=== PATIENT | male | born 1965 | race Caucasian/White ===

== ENCOUNTER → 2020-10-15 08:12 | Outpatient (BNVA) | payer MEDICARE, MEDICAID, SELFPAY | PROVIDERS: PCP Internal Medicine; Visit Provider Physician Assistant ==

== ENCOUNTER 2025-02-15 11:32 | Inpatient (IN) | payer MEDICARE, MEDICAID, SELFPAY ==
[2025-02-15] VITALS (12 sets, daily range): BP systolic 128–161; BP diastolic 70–89; PULSE 70–95; RESP 14–32; TEMP 36.6–37.1; O2SAT 80–97; BMI 54.0
--- NOTE | ~2025-02-15 | CT_ITS ---
EXAMINATION: CT CHEST ANGIOGRAPHY WITH IV CONTRAST INDICATION: Profound hypoxia, productive cough COMPARISON: Correlation is made with a chest x-ray performed earlier in the day. TECHNIQUE: Helical CT scan of the chest was performed following administration of intravenous contrast (65 mL Omnipaque 350). The contrast bolus was timed to optimally opacify the pulmonary arteries. Thin sections were obtained through the pulmonary arteries. Coronal and sagittal reformatted images were generated. 3D/MIP reconstructed images are also obtained and reviewed. This CT exam was performed with one or more of the following dose reduction techniques: automated exposure control, adjustment of the mA and/or kV according to patient size, use of iterative reconstruction technique. DLP: 592 mGy-cm CHEST: THYROID: The thyroid gland is unremarkable. PULMONARY ARTERIES: There is poor opacification of the pulmonary arteries. Nearly all of the contrast is in the left subclavian vein. There is dilatation of the main pulmonary artery which has a diameter greater than that of the adjacent ascending thoracic aorta, consistent with pulmonary arterial LUNGS: There is respiratory motion artifact. There is subsegmental atelectasis in the lingula. The lungs are otherwise grossly clear. MEDIASTINUM: There is no mediastinal lymphadenopathy. JULI: There is no hilar lymphadenopathy. CARDIOVASCULATURE: The heart is normal in size. There is no pericardial effusion. The thoracic aorta is normal in caliber. DEGREE OF CORONARY CALCIFICATION: moderate PLEURA: There is no pleural effusion. No pneumothorax. MAIN AIRWAYS: The mainstem bronchi and proximal branches are patent. AXILLA: There is no axillary lymphadenopathy. UPPER ABDOMEN: The visualized portions of the liver, spleen, and adrenals are unremarkable. BONES AND SOFT TISSUES: Unremarkable. CT/CT angio chest PE protocol IMPRESSION: Nondiagnostic examination for pulmonary emboli. Dilatation of the main pulmonary artery is compatible with pulmonary arterial hypertension. Electronically signed by: Leonard Flowers MD 02/15/2025 02:58 PM EDT
--- NOTE | ~2025-02-15 | XR_ITS ---
EXAMINATION: XR CHEST 2 VIEWS HISTORY: SOB COMPARISON: Comparison is made with the prior examination dated 03/07/2019. FINDINGS: AP and lateral views of the chest are submitted. The examination is limited by patient body habitus. The lungs are grossly clear. There is no pleural effusion, pneumothorax, or pulmonary vascular congestion. The heart is normal in size given technique. The bones are intact. XR/XR chest 2V IMPRESSION: Limited examination due to patient body habitus. The lungs are grossly clear. Electronically signed by: Leonard Flowers MD 02/15/2025 12:45 PM EDT
--- NOTE | 2025-02-15 11:38 | ED.SOB ---
HPI - SOB/Dyspnea General Chief Complaint: Dyspnea Stated Complaint: Diff Breathing Time Seen by Provider: 02/15/25 11:47 History of Present Illness ED Provider: Dr. Jang HPI Narrative: 59 y/o M patient; PMH PAM not compliant with CPAP, recent cocaine use (approx 3 days ago), marijuana use, extensive smoking history (quit approx 1 year ago due to cost of cigarettes); presents from home reporting approx 4 days of increased SOB associated with a productive cough. Patient does have known sick contact in step-daughter. He otherwise denies: fever or chills, chest pain, nausea/vomiting, abdominal pain, syncope. He states the only medications he uses are gabapentin and tylenol. Related Data Allergies Allergy/AdvReac Type Severity Reaction Status Date / Time No Known Allergies Allergy Verified 02/15/25 11:41 Review of Systems Review of Systems: Yes all other systems are reviewed and are negative [facility] Past Medical History Attestation statement: The following information was validated with the patient. Source: unable to obtain Surgical History History of skin surgery History of hip surgery Family History Family History Father Prostate CA Mother Colon cancer Sister Uterine cancer Brother DM (diabetes mellitus) Sister No problems noted. Social History Social History Alcohol intake: current Alcohol intake frequency: a few times a week Smoked in Last 30 Days: No Use of substances other than those prescribed or required for medical reasons: Yes Substance Use Type: Crack/Cocaine Advance Directives: No Advance Directives Information Provided: Yes Do you have a plan to hurt others: No Plan Physical Exam Vital Signs: Vital Signs: Last Vital Signs Temp 97.8 F 02/15/25 11:40 Pulse 88 02/15/25 12:00 Resp 24 H 02/15/25 12:00 BP 161/89 H 02/15/25 12:00 Pulse Ox 95 02/15/25 12:00 O2 Del Method Nasal Cannula 02/15/25 12:00 O2 Flow Rate 4 02/15/25 12:00 BMI result Body Mass Index 54.0 Patient is afebrile, tachypnic, and hypoxic requiring 3L NC. Const: General: cooperative Orientation/consciousness: patient oriented x3 HEENT: Head: Yes normal to inspection and Yes atraumatic Eyes: General: appearance normal, both eyes and all related structures Pupils: Equal, round and reactive pupils present EOM: EOMs intact bilaterally Neck: Neck: Yes normal visual inspection, Yes full ROM, Yes supple and No tender Chest: Chest palpation & inspection: normal inspection of the chest and normal palpation of entire chest wall Resp: Other: Diminished bilaterally, diffuse rhonchi, able to speak in 1 - 2 word sentences, + tachypnea. Effort & Inspection: Actively coughing and respiratory distress Cardio: Rate: regular rate Rhythm: regular rhythm Peripheral pulses: Peripheral pulses 2+ throughout GI: Inspection: Yes normal to inspection, No Abdominal wall edema and No distended Palpation (GI): Soft to palpation, not firm, nontender, no guarding and not rigid Auscultation: normal bowel sounds Back/Spine/Pelvis: Back: No back tenderness Neuro: General: patient oriented x3 Cranial nerves: Yes Equal, round and reactive pupils present Extrem: Other: 2+ bilateral lower extremity pitting edema Course Course Course Narrative: 02/15/25 1142 TIMBO [place]ver This is a Rapid Medical Examination (RME) performed by Wendy Bustamante PA-C in triage. Full HPI, ROS, assessment and treatment plan per primary provider in the Main ED. Hx: 59 yo M hx PAM here for eval of dyspnea, SOB, and cough productive of green/morrow sputum x2-3 days. states step daughter is ill w/ similar symptoms. denies chest pain. not on O2 at home. PE/vitals: hypoxic to 80% on RA, placed on 3L NC in triage. increased effort of breathing, talking in 1-2 word sentences. lungs with scattered expiratory wheezes, diminished breath sounds. cough noted. nonpitting edema to b/l LEs. Plan: ekg, cxr, viral swabs, labs Reevaluation(s) Reevaluation #1: Requested to see patient immediately due to high risk of life threatening deterioration in condition. Patient is afebrile, tachypnic, and hypoxic requiring 3L NC. Patient arrived hypoxic to 80% on RA - improved well with 3L NC. Will obtain EKG, CXR, and laboratory studies as detailed above. Although patient does not have a formal diagnosis of COPD, he does have a smoking history and is quite hypoxic & wheezy. I will provide a dose of Solu-Medrol and place him on the ED Bronchodilator protocol. Labs reviewed. No leukocytosis or significant anemia. VBG without acidosis. Initial troponin 25, repeat 2hr troponin ordered. COVID/Flu/RSV negative. CXr read as unremarkable by radiologist. Given profound hypoxia - will obtain CTA Chest to r/o PE. CTA notable for likely pulmonary artery HTN. No evidence of focal infiltrates. Non-diagnostic for PE due to contrast bolus timing. Plan: Admit to hospitalist Condition: Stable Medications Administered Discontinued Medications Generic Name Dose Route Start Last Admin Trade Name Freq PRN Reason Stop Dose Admin Iohexol 100 ml 02/15/25 13:58 02/15/25 13:58 Iohexol 350 Mg/Ml 100 Ml Infus..Btl IV 02/15/25 13:59 65 ml ONCE ONE Administration Methylprednisolone Sodium Succinate 125 mg 02/15/25 12:03 02/15/25 12:14 Methylprednisolone Sod Succ 125 Mg Vial IVPUSH 02/15/25 12:04 125 mg ONCE ONE Administration Medical Decision Making Lab Data 02/15/25 12:02 02/15/25 12:02 Labs: Lab Results 02/15/25 02/15/25 02/15/25 Range/Units 12:02 12:09 12:18 WBC 7.8 (4.8-10.8) X10*3/uL RBC 4.72 (4.60-5.80) X10*6/uL Hgb 14.3 (14.0-18.0) g/dl Hct 45.8 (42.0-52.0) % MCV 97.0 (80.0-98.0) fL MCH 30.3 (27.0-33.0) pg MCHC 31.2 (31.0-36.0) g/dl RDW 14.2 (11.0-16.0) % Plt Count 164 (160-400) X10*3/uL MPV 9.8 (9.4-12.4) fL Immature Gran % (Auto) 0.3 (0.0-0.4) % Neut % (Auto) 81.4 H (45-73) % Lymph % (Auto) 7.0 L (20-40) % Mchenry % (Auto) 9.3 (2-11) % Eos % (Auto) 1.7 (0-4) % Baso % (Auto) 0.3 (0-2) % Lymph # (Auto) 0.6 L (1.2-4.9) X10*3/uL Mchenry # (Auto) 0.7 (0.1-1.2) X10*3/uL Eos # (Auto) 0.1 (0.0-0.4) X10*3/uL Baso # (Auto) 0.0 (0.0-0.2) X10*3/uL Abs Immat Gran (auto) 0.02 (0.00-0.03) X10*3/uL Absolute Neuts (auto) 6.4 (2.0-8.3) x10*3/uL Absolute Nucleated RBC 0.000 (0.0-0.012) X10*3/uL Nucleated RBC % (auto) 0.0 (0.0-0.2) /100WBC VBG pH 7.35 (7.32-7.43) VBG pCO2 58 mmHg VBG pO2 94 mmHg VBG HCO3 33 H (22-26) mmol/L VBG O2 Saturation 100.0 % VBG Base Excess 5.4 mmol/L Sodium 137 (135-145) mmol/L Potassium 4.0 (3.3-5.1) mmol/L Chloride 103 (96-108) mmol/L Carbon Dioxide 31 H (22-29) mmol/L Anion Gap 7 L (12-20) BUN 13 (9-16) mg/dL Creatinine 0.65 (0.5-1.4) mg/dL Estim Creat Clear Calc 185.9 Estimated GFR > 60 Random Glucose 109 (60-115) mg/dL Lactic Acid 0.8 (0.5-2.0) mmol/L Calcium 9.0 (8.4-10.2) mg/dL Magnesium 1.7 (1.6-2.6) mg/dL Total Bilirubin 0.4 (0.0-1.0) mg/dL AST 25 (5-37) U/L ALT 19 (0-40) U/L Alkaline Phosphatase 76 (39-117) U/L Troponin I High Sens 25.1 (<3.5-35.0) ng/L B-Natriuretic Peptide 99 (<100) pg/mL Total Protein 7.2 (6.5-8.0) g/dL Albumin 3.8 (3.5-5.0) g/dL Influenza Type A (PCR) NEGATIVE (Negative) Influenza Type B (PCR) NEGATIVE (Negative) RSV RNA Qual (PCR) NEGATIVE (Negative) SARS-CoV-2 RNA (RT-PCR) NEGATIVE (Negative) Independent Interpretation I performed an independent interpretation of an: EKG Interpretation: NSR 80BPM with normal intervals, no ischemic changes Radiology Impression Discussion of test interpretation with radiology: I have reviewed the radiologist's reading. Radiologist Impression: EXAMINATION: XR CHEST 2 VIEWS HISTORY: SOB COMPARISON: Comparison is made with the prior examination dated 03/07/2019. FINDINGS: AP and lateral views of the chest are submitted. The examination is limited by patient body habitus. The lungs are grossly clear. There is no pleural effusion, pneumothorax, or pulmonary vascular congestion. The heart is normal in size given technique. The bones are intact. XR/XR chest 2V IMPRESSION: Limited examination due to patient body habitus. The lungs are grossly clear. Electronically signed by: Leonard Flowers MD 02/15/2025 12:45 PM EDT RP Report Number: [id number]: Total DLP = 592.00 mGy-cm EXAMINATION: CT CHEST ANGIOGRAPHY WITH IV CONTRAST INDICATION: Profound hypoxia, productive cough COMPARISON: Correlation is made with a chest x-ray performed earlier in the day. TECHNIQUE: Helical CT scan of the chest was performed following administration of intravenous contrast (65 mL Omnipaque 350). The contrast bolus was timed to optimally opacify the pulmonary arteries. Thin sections were obtained through the pulmonary arteries. Coronal and sagittal reformatted images were generated. 3D/MIP reconstructed images are also obtained and reviewed. This CT exam was performed with one or more of the following dose reduction techniques: automated exposure control, adjustment of the mA and/or kV according to patient size, use of iterative reconstruction technique. DLP: 592 mGy-cm CHEST: THYROID: The thyroid gland is unremarkable. PULMONARY ARTERIES: There is poor opacification of the pulmonary arteries. Nearly all of the contrast is in the left subclavian vein. There is dilatation of the main pulmonary artery which has a diameter greater than that of the adjacent ascending thoracic aorta, consistent with pulmonary arterial LUNGS: There is respiratory motion artifact. There is subsegmental atelectasis in the lingula. The lungs are otherwise grossly clear. MEDIASTINUM: There is no mediastinal lymphadenopathy. JULI: There is no hilar lymphadenopathy. CARDIOVASCULATURE: The heart is normal in size. There is no pericardial effusion. The thoracic aorta is normal in caliber. DEGREE OF CORONARY CALCIFICATION: moderate PLEURA: There is no pleural effusion. No pneumothorax. MAIN AIRWAYS: The mainstem bronchi and proximal branches are patent. AXILLA: There is no axillary lymphadenopathy. UPPER ABDOMEN: The visualized portions of the liver, spleen, and adrenals are unremarkable. BONES AND SOFT TISSUES: Unremarkable. CT/CT angio chest PE protocol IMPRESSION: Nondiagnostic examination for pulmonary emboli. Dilatation of the main pulmonary artery is compatible with pulmonary arterial hypertension. Electronically signed by: Leonard Flowers MD 02/15/2025 02:58 PM EDT Discharge Plan Discharge Clinical Impression: Viral pneumonia, COPD exacerbation, Pulmonary arterial hypertension Patient Disposition: Admitted As Inpatient Print Language: Sudanese
--- NOTE | 2025-02-15 11:40 | ECG_ITS ---
Test Reason : SOB Blood Pressure : */* mmHG Vent. Rate : 80 BPM Atrial Rate : 80 BPM P-R Int : 154 ms QRS Dur : 94 ms QT Int : 376 ms P-R-T Axes : 64 -14 62 degrees QTcB Int : 433 ms Normal sinus rhythm Normal ECG When compared with ECG of 07-Mar-2019 10:50, No significant change was found Referred By: Rosa Bustamante Electronically Signed By: SHANTELLE SARKAR
[2025-02-15 12:10] LABS: MANUAL DIFF FLAG NO
[2025-02-15 12:11] LABS: Basophils Percent Auto 0.3 % (0-2); Eosinophils Absolute Auto 0.1 X10*3/uL (0.0-0.4); Eosinophils Percent Auto 1.7 % (0-4); Hematocrit 45.8 % (42.0-52.0); Hemoglobin 14.3 g/dl (14.0-18.0); Imm Gran Abs Auto 0.02 X10*3/uL (0.00-0.03); Imm Gran Pct Auto 0.3 % (0.0-0.4); Lymphocytes Absolute Auto 0.6 X10*3/uL (1.2-4.9); Mean Corpuscular HGB Conc 31.2 g/dl (31.0-36.0); Mean Corpuscular Hemoglobin 30.3 pg (27.0-33.0); Mean Platelet Volume 9.8 fL (9.4-12.4); Monocytes Absolute Auto 0.7 X10*3/uL (0.1-1.2); Monocytes Percent Auto 9.3 % (2-11); Neutrophils Absolute Auto 6.4 x10*3/uL (2.0-8.3); Neutrophils Percent Auto 81.4 % (45-73); Platelet Count 164 X10*3/uL (160-400); Red Blood Count 4.72 X10*6/uL (4.60-5.80); Red Cell Distribution Width 14.2 % (11.0-16.0); White Blood Count 7.8 X10*3/uL (4.8-10.8)
[2025-02-15 12:14] LABS: VBG Base Excess 5.4 mmol/L; VBG HCO3 33 mmol/L (22-26); VBG pCO2 58 mmHg; VBG pH 7.35 (7.32-7.43); VBG pO2 94 mmHg
[2025-02-15 12:16] LABS: Venous Blood Gas Refer to POC result
[2025-02-15 12:34] LABS: Troponin-I High Sensitivity 25.1 ng/L (<3.5-35.0)
[2025-02-15 12:38] LABS: B Type Natriuretic Peptide 99 pg/mL (<100)
--- OUTSIDE RECORDS SUMMARY | 2025-02-15 13:05 | XMS_ITS ---
Author Organization [facility] Care Team Providers Care Mental Retardation Aide Name Role Phone Cecile Duran Unavailable Unavailable Hillary Cartwright Unavailable Unavailable Celsa Trevizo Unavailable Unavailable Allergies and adverse reactions No Known Allergies Care Team Name Role Address Phone Organization Dates Hillary Cartwright PCP [address], [place], [address], [facility] (Office): [facility] 08/29/2019 - 10/15/2019 Cecile Duran [address], [address], [facility] (Office): [facility] 08/29/2019 - 10/15/2019 Celsa Trevizo [address] [facility] [address] [place] [address], [address], [facility] (Office): [facility] 08/29/2019 - 10/15/2019 Mental Status Section Date Assessment Total Score Description 10/15/2019 BIMS 15 cognitively int act CAM 0 No delirium ind icated PHQ-9 04 minimal depress ion 09/04/2019 BIMS 15 cognitively int act CAM 0 No delirium ind icated PHQ-9 10 moderate depres vikas Problems Problem # Description Date of onset Resolved Date Code CodeSystem Concern Status 1 ALLERGIC RHINITIS, UNSPECIFIED 09/03/[address] active 2 ACIDOSIS 08/29/[address] active 3 ACUTE POSTHEMORRHAGIC ANEMIA 08/29/[address] active 4 ACUTE RESPIRATORY FAILURE WITH HYPOXIA 08/29/[address] active 5 ALCOHOL DEPENDENCE, UNCOMPLICATED 08/29/[address] active 6 CENTRAL SLEEP APNEA IN CONDITIONS CLASSIFIED ELSEWHERE 08/29/[address] active 7 DIFFICULTY IN WALKING, NOT ELSEWHERE CLASSIFIED 08/29/[address] active 8 DISPLACED FRACTURE OF ANTERIOR COLUMN [ILIOPUBIC] OF RIGHT ACETABULUM, SUBSEQUENT ENCOUNTER FOR FRACTURE WITH ROUTINE HEALING 08/29/[address] active 9 ENCOUNTER FOR OTHER ORTHOPEDIC AFTERCARE 08/29/[address] active 10 FRACTURE OF UNSPECIFIED PARTS OF LUMBOSACRAL SPINE AND PELVIS, SUBSEQUENT ENCOUNTER FOR FRACTURE WITH ROUTINE HEALING 08/29/[address] active 11 MORBID (SEVERE) OBESITY DUE TO EXCESS CALORIES 08/29/[address] active 12 MORBID (SEVERE) OBESITY WITH ALVEOLAR HYPOVENTILATION 08/29/[address] active 13 MUSCLE WEAKNESS (GENERALIZED) 08/29/[address] active 14 OBSTRUCTIVE SLEEP APNEA (ADULT) (PEDIATRIC) 08/29/[address] active 15 OTHER SLEEP APNEA 08/29/[address] active 16 PREDIABETES 08/29/[address] activ e 17 SLEEP RELATED HYPOVENTILATION IN CONDITIONS CLASSIFIED ELSEWHERE 08/29/[address] active 18 UNSTEADINESS ON FEET 08/29/[address] active Reason for Referral No Reasons for Referral Entered Social History Social History Observation Description Start Date End Date Code Code System Current Smoking Status Tobacco smoking consumption unknown 493314936 SNOMED CT Sex Assigned At Male 1965 66911-3 [facility] Gender Identity Vital Signs Code Code System Vitals Name Values and Units Timing Information 96593-6 [facility] Pain Level Value=2.0 10/15/2019 9279-1 [facility] Respiratory Rate Value=18.0 Units=/m in 10/15/2019 8310-5 [facility] Body Temperature Value=97.4 Units=?? F 10/15/2019 8867-4 [facility] Heart rate Value=78.0 Units=/min 11/2019 8462-4 [facility] Blood Pressure-Diastolic Value=84 Un its=mmHg 10/15/2019 8480-6 [facility] Blood Pressure-Systolic Igsnw=286 Un its=mmHg 10/15/2019 68479-8 [facility] O2 % BldC Oximetry Value=97.0 Units= % 10/11/2019 66710-1 [facility] Weight Fwftr=571.2 Units=Lbs 8302-2 [facility] Height Value=69.0 Units=Inches 09/04/2019
[2025-02-15 13:10] LABS: Influenza A PCR NEGATIVE (Negative); Influenza B PCR NEGATIVE (Negative); Resp Syncy Virus RNA Qual PCR NEGATIVE (Negative); SARS COV2 PCR INHOUSE NEGATIVE (Negative)
[2025-02-15 13:23] LABS: Alanine Aminotransferase 19 U/L (0-40); Albumin Level 3.8 g/dL (3.5-5.0); Alkaline Phosphatase 76 U/L (39-117); Anion Gap 7 (12-20); Aspartate Amino Transferase 25 U/L (5-37); Bilirubin Total 0.4 mg/dL (0.0-1.0); Blood Urea Nitrogen 13 mg/dL (9-16); Carbon Dioxide 31 mmol/L (22-29); Chloride 103 mmol/L (96-108); Creatinine Clr Calc Pharmacy 185.9; Estimated Glomerular Filt Rate > 60; Glucose Random 109 mg/dL (60-115); Magnesium 1.7 mg/dL (1.6-2.6); Sodium 137 mmol/L (135-145); Total Protein 7.2 g/dL (6.5-8.0)
[2025-02-15 13:50] LABS: Lactic Acid 0.8 mmol/L (0.5-2.0)
[2025-02-15] MEDS: iohexoL 350 MG/ML 100 ML INFUS..BTL IV (13:58)
--- NOTE | 2025-02-15 15:31 | PM.IMHP ---
History of Present Illness Date of Service: 02/15/25 Chief Complaint: sob 59M PMH morbid obesity with OHS/PAM, cociaine and marijuana use, presented with sob. Patient reports symptoms began approximately 4 days ago associated with productive cough, inability to tolerate any exertion, subjective fever. Denies chest pain, nausea vomiting, abdominal pain. Reports noncompliance with CPAP. In ED noted to be hypoxic, hypercapnia, chest imaging unremarkable. Review of Systems Review of Systems: Yes all other systems are reviewed and are negative COUNT INCLUDES THE [facility] Medical History Obesity hypoventilation syndrome PAM (obstructive sleep apnea) Morbid obesity Family History Father Prostate CA Mother Colon cancer Sister Uterine cancer Brother DM (diabetes mellitus) Sister No problems noted. Surgical History History of skin surgery History of hip surgery Social History Alcohol intake: current Alcohol intake frequency: a few times a week Smoked in Last 30 Days: No Use of substances other than those prescribed or required for medical reasons: Yes Substance Use Type: Crack/Cocaine Advance Directives: No Advance Directives Information Provided: Yes Do you have a plan to hurt others: No Plan Meds Allergies Allergy/AdvReac Type Severity Reaction Status Date / Time No Known Allergies Allergy Verified 02/15/25 11:41 Active Medications: Current Medications Acetazolamide (Acetazolamide Sodium 500 Mg Vial) 500 mg IVPUSH Q12H HIGINIO Stop: 02/16/25 15:31 Albuterol/Ipratropium (Albuterol/Iprat 2.5/0.5mg 3 Ml Ampul.Neb) 3 ml INHALE RQ4H WHILE AWAKE PRN PRN Reason: sob Azithromycin (Azithromycin 500 Mg Tablet) 500 mg PO Q24H HIGINIO Ceftriaxone Sodium (Ceftriaxone Sodium 1 Gm Vial) 1 gm IVPUSH Q24H HIGINIO Enoxaparin Sodium (Enoxaparin Sodium 40 Mg/0.4 Ml Syringe) 40 mg SUBCUT Q24H HIGINIO Methylprednisolone Sodium Succinate (Methylprednisolone Sod Succ 40 Mg/Ml Vial) 40 mg IVPUSH Q12H HIGINIO Ondansetron HCl (Ondansetron Hcl 4 Mg/2 Ml Vial) 4 mg IVPUSH Q6H PRN PRN Reason: Nausea Physical Exam Vital Signs and Narrative: Vital Signs: Last Vital Signs Temp 97.8 F 02/15/25 11:40 Pulse 88 02/15/25 12:00 Resp 24 H 02/15/25 12:00 BP 161/89 H 02/15/25 12:00 Pulse Ox 95 02/15/25 12:00 O2 Del Method Nasal Cannula 02/15/25 12:00 O2 Flow Rate 4 02/15/25 12:00 BMI result Body Mass Index 54.0 Lethargic oriented x3, bilateral wheezing, ill-appearing, morbidly obese Results Labs 02/15/25 12:02 02/15/25 12:02 Labs: Laboratory Results - last 24 hr 02/15/25 02/15/25 02/15/25 12:02 12:09 12:18 MCV 97.0 MCH 30.3 MCHC 31.2 RDW 14.2 Plt Count 164 MPV 9.8 Immature Gran % (Auto) 0.3 Neut % (Auto) 81.4 H Lymph % (Auto) 7.0 L Bath % (Auto) 9.3 Eos % (Auto) 1.7 Baso % (Auto) 0.3 Lymph # (Auto) 0.6 L Bath # (Auto) 0.7 Eos # (Auto) 0.1 Baso # (Auto) 0.0 Abs Immat Gran (auto) 0.02 Absolute Neuts (auto) 6.4 Absolute Nucleated RBC 0.000 Nucleated RBC % (auto) 0.0 VBG pH 7.35 VBG pCO2 58 VBG pO2 94 VBG HCO3 33 H VBG O2 Saturation 100.0 VBG Base Excess 5.4 Anion Gap 7 L Estim Creat Clear Calc 185.9 Estimated GFR > 60 Random Glucose 109 Lactic Acid 0.8 Calcium 9.0 Magnesium 1.7 Total Bilirubin 0.4 AST 25 ALT 19 Alkaline Phosphatase 76 Troponin I High Sens 25.1 B-Natriuretic Peptide 99 Total Protein 7.2 Albumin 3.8 Influenza Type A (PCR) NEGATIVE Influenza Type B (PCR) NEGATIVE RSV RNA Qual (PCR) NEGATIVE SARS-CoV-2 RNA (RT-PCR) NEGATIVE Imaging Radiologist's Impressions: Impressions Chest X-Ray 02/15/25 11:30 IMPRESSION: Limited examination due to patient body habitus. The lungs are grossly clear. Electronically signed by: Leonard Flowers MD 02/15/2025 12:45 PM EDT RP Chest CTA 02/15/25 13:43 IMPRESSION: Nondiagnostic examination for pulmonary emboli. Dilatation of the main pulmonary artery is compatible with pulmonary arterial hypertension. Electronically signed by: Leonard Flowers MD 02/15/2025 02:58 PM EDT RP Assessment and Plan (1) Morbid obesity: Status: Acute Plan 59M PMH morbid obesity with OHS/PAM, cociaine and marijuana use, presented with sob Acute on likely Chornic hypoxic and hypercapnic respiratory failure complicated by acute metabolic encephalopathy Likely multifactorial acute on chronic diastolic chf, pulm htn - iv diamox OHS/PAM due to morbid obesity with non compliance - cpap at night, monitor vbg, weight loss possible pneumonia - empiric rocephin, azithro reactive airway due to cocaine use - steroids, nebs dvt prophylaxis - lovenox full code Quality Stroke Does the patient have a stroke diagnosis?: No VTE Prior VTE?: No VTE Risk Level:: Medical - moderate - high VTE Device Contraindication: Treatment Not Indicated VTE Drug Contraindication: N/A - Med Ordered
--- NOTE | 2025-02-15 15:43 | PHA.MEDREC ---
Pharmacy Consult ? Medication Reconciliation Pharmacy has completed the medication reconciliation.Med rec complete. Patient states he takes gabapentin 300 mg bid but no pharmacy claim history to support this.
[2025-02-15 15:49] LABS: VBG Base Excess 4.4 mmol/L; VBG HCO3 34 mmol/L (22-26); VBG pCO2 72 mmHg; VBG pH 7.27 (7.32-7.43); VBG pO2 77 mmHg
[2025-02-15 15:50] LABS: Venous Blood Gas Refer to POC result
[2025-02-15 16:09] LABS: Troponin-I High Sensitivity 21.2 ng/L (<3.5-35.0)
[2025-02-15] MEDS: acetaZOLAMIDE sodium 500 MG VIAL IVPUSH (16:36)
[2025-02-15] MEDS: 0.9 % Sodium Chloride Flush 3 ML SYRINGE IVFLUSH (16:44)
[2025-02-15] MEDS: Azithromycin 500 MG TABLET PO (16:44)
--- NOTE | 2025-02-15 18:44 | PC.NURSE ---
Continues on bipap , respiratory at bedside stating to leave patient on bipap at this time
[2025-02-15 19:20] LABS: VBG Base Excess 2.1 mmol/L; VBG HCO3 31 mmol/L (22-26); VBG pCO2 68 mmHg; VBG pH 7.27 (7.32-7.43); VBG pO2 102 mmHg
--- NOTE | 2025-02-15 19:20 | PC.NURSE ---
RT at bedside to remove pt from bipap
[2025-02-15 19:22] LABS: Venous Blood Gas Refer to POC result
--- NOTE | 2025-02-15 21:59 | PC.NURSE ---
pt 02 remains >90%, oxymask often under pt's chin, placed on NC instead. pt more compliant, sitting up on edge of bed with brother at bedside. 92%. 20g IV to R hand was ripped out.
[2025-02-15 22:18] LABS: VBG Base Excess 1.2 mmol/L; VBG HCO3 29 mmol/L (22-26); VBG pCO2 61 mmHg; VBG pH 7.28 (7.32-7.43); VBG pO2 75 mmHg
[2025-02-15 22:27] LABS: Venous Blood Gas Refer to POC result
[2025-02-15 22:35] LABS: ABG Base Excess 1.6 mmol/L; ABG HCO3 31 mmol/L (22-26); ABG pCO2 71 mmHg (32-45); ABG pH 7.24 (7.35-7.45); ABG pO2 83 mmHg (83-108)
--- NOTE | 2025-02-15 23:02 | PC.NURSE ---
pt back on BiPAP
--- NOTE | 2025-02-15 23:56 | PM.EVENT ---
Documented by User: Lucille Raymond NP 02/15/25 23:57 Event Note Date of Service: 02/15/25 Event Note: Patient evaluated for level of care secondary to acute on chronic hypoxic and hypercapnic respiratory failure.? PMH includes reactive airway disease due to acute cocaine use, OHS/PAM due to morbid obesity with non compliance of CPAP use. Treated empirically with Rocephin and azithromycin for possible pneumonia. Placed on BiPAP at time of admission with no improvement to respiratory acidosis, hypercapnea. Patient transferred to the ICU for rescue BiPAP. He is drowsy but oriented, appears comfortable. Systolic blood pressure in 120s with HR 70's. No respiratory distress: O2 sat 95% on Bipap. Will monitor and reassess in am. Time Spent With Patient Time: Total time managing care of this patient today ____ minutes. Documented by User: Sudhir Tse MD 02/16/25 08:45 Event Note Date of Service: 02/16/25
[2025-02-16] VITALS (16 sets, daily range): BP systolic 92–135; BP diastolic 44–78; PULSE 18–97; RESP 16–28; TEMP 36.1–36.8; O2SAT 88–97
[2025-02-16 00:22] LABS: ABG Refer to POC result
[2025-02-16] MEDS: methylPREDNISolone Sod Succ 40 MG/ML VIAL IVPUSH (01:40)
[2025-02-16] MEDS: 0.9 % Sodium Chloride Flush 3 ML SYRINGE IVFLUSH ×4 (01:40→22:21)
[2025-02-16] MEDS: acetaZOLAMIDE sodium 500 MG VIAL IVPUSH ×2 (04:20→16:08)
[2025-02-16 05:33] LABS: VBG Base Excess -1.4 mmol/L; VBG HCO3 29 mmol/L (22-26); VBG pCO2 83 mmHg; VBG pH 7.15 (7.32-7.43); VBG pO2 68 mmHg
[2025-02-16 05:46] LABS: Venous Blood Gas Refer to POC result
[2025-02-16 06:13] LABS: MANUAL DIFF FLAG NO
[2025-02-16 06:16] LABS: Hematocrit 51.9 % (42.0-52.0); Hemoglobin 15.3 g/dl (14.0-18.0); Imm Gran Abs Auto 0.03 X10*3/uL (0.00-0.03); Imm Gran Pct Auto 0.5 % (0.0-0.4); Lymphocytes Absolute Auto 0.6 X10*3/uL (1.2-4.9); Lymphocytes Percent Auto 9.3 % (20-40); Mean Corpuscular HGB Conc 29.5 g/dl (31.0-36.0); Mean Corpuscular Hemoglobin 29.9 pg (27.0-33.0); Mean Corpuscular Volume 101.4 fL (80.0-98.0); Mean Platelet Volume 10.2 fL (9.4-12.4); Monocytes Absolute Auto 0.3 X10*3/uL (0.1-1.2); Monocytes Percent Auto 3.9 % (2-11); Neutrophils Absolute Auto 5.6 x10*3/uL (2.0-8.3); Neutrophils Percent Auto 86.3 % (45-73); Platelet Count 169 X10*3/uL (160-400); Red Blood Count 5.12 X10*6/uL (4.60-5.80); White Blood Count 6.4 X10*3/uL (4.8-10.8)
[2025-02-16 06:19] LABS: ABG Base Excess -0.3 mmol/L; ABG HCO3 30 mmol/L (22-26); ABG pCO2 73 mmHg (32-45); ABG pH 7.21 (7.35-7.45); ABG pO2 79 mmHg (83-108)
[2025-02-16 06:30] LABS: ABG Refer to POC result
[2025-02-16 06:32] LABS: Albumin Level 4.2 g/dL (3.5-5.0); Anion Gap 12 (12-20); Blood Urea Nitrogen 10 mg/dL (9-16); Calcium 9.5 mg/dL (8.4-10.2); Carbon Dioxide 27 mmol/L (22-29); Chloride 106 mmol/L (96-108); Creatinine Clr Calc Pharmacy 188.8; Estimated Glomerular Filt Rate > 60; Glucose Random 129 mg/dL (60-115); Magnesium 2.3 mg/dL (1.6-2.6); Phosphorus 2.5 mg/dL (2.7-4.5); Sodium 140 mmol/L (135-145)
--- NOTE | 2025-02-16 08:45 | P.PNCC_ITS ---
Subjective Subjective Date of Service: 02/16/25 Interval History: 59-year-old gentleman with underlying morbid obesity with PAM/ohs, polysubstance abuse admitted with dyspnea 4 days. Patient initially admitted telemetry vásquez, however with iatrogenic hyperoxia resulting in hypercapnia requiring BiPAP support with inability initially to titrate off BiPAP, transferred to the intensive care unit. No events overnight. Critical Care Time (minutes): 45 Physical Exam 2 Vital Signs: Vital Signs: Last Vital Signs Temp 97.5 F 02/16/25 08:00 Pulse 63 02/16/25 08:00 Resp 18 02/16/25 08:00 BP 113/58 L 02/16/25 08:00 Pulse Ox 91 L 02/16/25 08:00 O2 Del Method BiPAP 02/16/25 08:00 O2 Flow Rate 4 02/15/25 12:00 FiO2 30 02/16/25 08:00 BMI result Body Mass Index 54.0 Const: General: no acute distress, alert and awake Nutritional Appearance: obese Eyes: Sclerae: sclerae normal EOM: EOMs intact bilaterally Neck: Neck: Yes no lymphadenopathy, Yes trachea midline and Yes supple Resp: Effort & Inspection: normal respiratory effort and no respiratory distress Auscultation: clear to auscultation bilaterally Cardio: Rate: regular rate Rhythm: regular rhythm Heart sounds: no gallops, no murmurs and no rubs GI: Palpation (GI): Soft to palpation and Other GI palpation findings present ( Nontender) Auscultation: normal bowel sounds Extrem: General: No clubbing, No cyanosis and Yes edema (1+ bilateral) Objective Data Labs 02/16/25 05:23 02/16/25 05:23 Labs: Laboratory Results - last 24 hr 02/15/25 02/15/25 02/15/25 12:02 12:09 12:18 WBC 7.8 RBC 4.72 Hgb 14.3 Hct 45.8 MCV 97.0 MCH 30.3 MCHC 31.2 RDW 14.2 Plt Count 164 MPV 9.8 Immature Gran % (Auto) 0.3 Neut % (Auto) 81.4 H Lymph % (Auto) 7.0 L [place] % (Auto) 9.3 Eos % (Auto) 1.7 Baso % (Auto) 0.3 Lymph # (Auto) 0.6 L [place] # (Auto) 0.7 Eos # (Auto) 0.1 Baso # (Auto) 0.0 Abs Immat Gran (auto) 0.02 Absolute Neuts (auto) 6.4 Absolute Nucleated RBC 0.000 Nucleated RBC % (auto) 0.0 Hold Purple Top O2 Saturation ABG pH at Pt Temp ABG pCO2 at Pt Temp ABG pO2 at Pt Temp ABG HCO3 ABG Base Excess (Actual) VBG pH 7.35 VBG pCO2 58 VBG pO2 94 VBG HCO3 33 H VBG O2 Saturation 100.0 VBG Base Excess 5.4 Sodium 137 Potassium 4.0 Chloride 103 Carbon Dioxide 31 H Anion Gap 7 L BUN 13 Creatinine 0.65 Estim Creat Clear Calc 185.9 Estimated GFR > 60 Random Glucose 109 Lactic Acid 0.8 Calcium 9.0 Phosphorus Magnesium 1.7 Total Bilirubin 0.4 AST 25 ALT 19 Alkaline Phosphatase 76 Troponin I High Sens 25.1 B-Natriuretic Peptide 99 Total Protein 7.2 Albumin 3.8 Influenza Type A (PCR) NEGATIVE Influenza Type B (PCR) NEGATIVE RSV RNA Qual (PCR) NEGATIVE SARS-CoV-2 RNA (RT-PCR) NEGATIVE 02/15/25 02/15/25 02/15/25 14:43 15:45 19:15 WBC RBC Hgb Hct MCV MCH MCHC RDW Plt Count MPV Immature Gran % (Auto) Neut % (Auto) Lymph % (Auto) [place] % (Auto) Eos % (Auto) Baso % (Auto) Lymph # (Auto) [place] # (Auto) Eos # (Auto) Baso # (Auto) Abs Immat Gran (auto) Absolute Neuts (auto) Absolute Nucleated RBC Nucleated RBC % (auto) Hold Purple Top O2 Saturation ABG pH at Pt Temp ABG pCO2 at Pt Temp ABG pO2 at Pt Temp ABG HCO3 ABG Base Excess (Actual) VBG pH 7.27 L 7.27 L VBG pCO2 72 68 VBG pO2 77 102 VBG HCO3 34 H 31 H VBG O2 Saturation 95.0 99.0 VBG Base Excess 4.4 2.1 Sodium Potassium Chloride Carbon Dioxide Anion Gap BUN Creatinine Estim Creat Clear Calc Estimated GFR Random Glucose Lactic Acid Calcium Phosphorus Magnesium Total Bilirubin AST ALT Alkaline Phosphatase Troponin I High Sens 21.2 B-Natriuretic Peptide Total Protein Albumin Influenza Type A (PCR) Influenza Type B (PCR) RSV RNA Qual (PCR) SARS-CoV-2 RNA (RT-PCR) 02/15/25 02/15/25 02/15/25 22:08 22:13 22:31 WBC RBC Hgb Hct MCV MCH MCHC RDW Plt Count MPV Immature Gran % (Auto) Neut % (Auto) Lymph % (Auto) [place] % (Auto) Eos % (Auto) Baso % (Auto) Lymph # (Auto) [place] # (Auto) Eos # (Auto) Baso # (Auto) Abs Immat Gran (auto) Absolute Neuts (auto) Absolute Nucleated RBC Nucleated RBC % (auto) Hold Purple Top SEE NOTE O2 Saturation 95.0 ABG pH at Pt Temp 7.24 L ABG pCO2 at Pt Temp 71 H* ABG pO2 at Pt Temp 83 ABG HCO3 31 H ABG Base Excess (Actual) 1.6 VBG pH 7.28 L VBG pCO2 61 VBG pO2 75 VBG HCO3 29 H VBG O2 Saturation 94.0 VBG Base Excess 1.2 Sodium Potassium Chloride Carbon Dioxide Anion Gap BUN Creatinine Estim Creat Clear Calc Estimated GFR Random Glucose Lactic Acid Calcium Phosphorus Magnesium Total Bilirubin AST ALT Alkaline Phosphatase Troponin I High Sens B-Natriuretic Peptide Total Protein Albumin Influenza Type A (PCR) Influenza Type B (PCR) RSV RNA Qual (PCR) SARS-CoV-2 RNA (RT-PCR) 02/16/25 02/16/25 02/16/25 05:23 05:29 06:15 WBC 6.4 RBC 5.12 Hgb 15.3 Hct 51.9 MCV 101.4 H MCH 29.9 MCHC 29.5 L RDW 14.0 Plt Count 169 MPV 10.2 Immature Gran % (Auto) 0.5 H Neut % (Auto) 86.3 H Lymph % (Auto) 9.3 L [place] % (Auto) 3.9 Eos % (Auto) 0.0 Baso % (Auto) 0.0 Lymph # (Auto) 0.6 L [place] # (Auto) 0.3 Eos # (Auto) 0.0 Baso # (Auto) 0.0 Abs Immat Gran (auto) 0.03 Absolute Neuts (auto) 5.6 Absolute Nucleated RBC 0.000 Nucleated RBC % (auto) 0.0 Hold Purple Top O2 Saturation 94.0 ABG pH at Pt Temp 7.21 L ABG pCO2 at Pt Temp 73 H* ABG pO2 at Pt Temp 79 L ABG HCO3 30 H ABG Base Excess (Actual) -0.3 VBG pH 7.15 L* VBG pCO2 83 VBG pO2 68 VBG HCO3 29 H VBG O2 Saturation 89.0 VBG Base Excess -1.4 Sodium 140 Potassium 5.0 D Chloride 106 Carbon Dioxide 27 Anion Gap 12 BUN 10 Creatinine 0.64 Estim Creat Clear Calc 188.8 Estimated GFR > 60 Random Glucose 129 H Lactic Acid Calcium 9.5 Phosphorus 2.5 L Magnesium 2.3 Total Bilirubin AST ALT Alkaline Phosphatase Troponin I High Sens B-Natriuretic Peptide Total Protein Albumin 4.2 Influenza Type A (PCR) Influenza Type B (PCR) RSV RNA Qual (PCR) SARS-CoV-2 RNA (RT-PCR) Progress Note: A&P Assessment and plan (1) PAM (obstructive sleep apnea): Status: Acute (2) Obesity hypoventilation syndrome: Status: Acute (3) Acute respiratory failure with hypoxia and hypercapnia: Status: Acute Plan Assessment: 59-year-old gentleman with obesity, PAM, obesity hypoventilation syndrome admitted with acute hypoxic and hypercapnic respiratory failure requiring initially BiPAP support. Plan: Neuro: No acute issues. Cardiac: Likely underlying diastolic dysfunction. 2D echo is pending. Continue empiric diuresis. Pulmonary: Acute hypoxic and hypercapnic respiratory failure requiring BiPAP support, continue to titrate off as tolerated. Likely underlying Renal: No acute issues. Endo: No acute issues. GI: No acute issues. ID: No acute issues Heme/Onc: No acute issues. Psych: No acute issues. Miscellaneous: No acute issues. Prophylaxis: Lovenox Diet: Regular Critical care time spent: 45 minutes Quality Stroke Does the patient have a stroke diagnosis?: No VTE Prior VTE?: No VTE Risk Level:: Medical - moderate - high VTE Device Contraindication: Treatment Not Indicated VTE Drug Contraindication: N/A - Med Ordered
[2025-02-16] MEDS: Potassium Phosphate/NS 15 MMOL/250 ML PLAST..BAG 62.5 MMOL IV ×2 (09:00→13:24)
[2025-02-16] MEDS: Furosemide 40 MG/4 ML VIAL IVPUSH (09:00)
[2025-02-16 09:20] LABS: Venous Blood Gas Refer to POC result
[2025-02-16 09:21] LABS: VBG HCO3 28 mmol/L (22-26); VBG pCO2 60 mmHg; VBG pH 7.27 (7.32-7.43); VBG pO2 42 mmHg
[2025-02-16] MEDS: Enoxaparin Sodium 40 MG/0.4 ML SYRINGE SUBCUT (09:32)
--- NOTE | 2025-02-16 11:19 | MHC.CM.PN ---
IMM DELIVERED. CM MET WITH PT IN ICU. PT LIVES WITH BROTHER AND USES A WALKER FOR MAJOR MOBILITY. PT HAS A CPAP FOR SLEEP BUT FINDS IT DIFFICULT TO USE. PT'S VENDOR IS [employer]. NO SERVICES. PT BELIVES HE HAS A COPY OF HCP AT MD OFFICE, PT STATES HE HAS A PCP AT [facility] BUT DOES NOT RECALL PROVIDERS NAME. DP: HOME, NO SERVICES VS HOME WITH SERVICES. REFERRAL TO BE SENT TO [facility] PER PT REQUEST SHOULD HE REQUIRE HOME SERVICES. PT MAY NEED ASSIST WITH [facility] VIA SHUTTLE OR LYFT. CM WILL CONTINUE TO FOLLOW FOR ANY CHANGE TO DC PLAN/NEEDS.
[2025-02-16 12:12] LABS: ABG Base Excess 1.1 mmol/L; ABG HCO3 29 mmol/L (22-26); ABG pCO2 62 mmHg (32-45); ABG pH 7.28 (7.35-7.45); ABG pO2 73 mmHg (83-108)
--- NOTE | 2025-02-16 17:20 | PC.NURSE ---
Md notified of low BP of 92/44 after pt transfered from ICU. asked to hold 6p IV lasix due to low BP.
[2025-02-16] MEDS: Acetaminophen 325 MG TABLET 650 MG PO (22:20)
[2025-02-17 00:32] VITALS: PULSE 70; RESP 20; O2SAT 95
[2025-02-17 03:40] VITALS: BP 133/73; PULSE 63; RESP 16; TEMP 36.4; O2SAT 94
[2025-02-17] MEDS: acetaZOLAMIDE sodium 500 MG VIAL IVPUSH (05:39)
[2025-02-17 05:43] VITALS: BMI 52.6
[2025-02-17 07:00] LABS: MANUAL DIFF FLAG NO
[2025-02-17 07:04] LABS: Basophils Percent Auto 0.2 % (0-2); Eosinophils Absolute Auto 0.1 X10*3/uL (0.0-0.4); Eosinophils Percent Auto 1.1 % (0-4); Hematocrit 45.9 % (42.0-52.0); Hemoglobin 13.6 g/dl (14.0-18.0); Imm Gran Abs Auto 0.03 X10*3/uL (0.00-0.03); Imm Gran Pct Auto 0.4 % (0.0-0.4); Lymphocytes Absolute Auto 2.1 X10*3/uL (1.2-4.9); Lymphocytes Percent Auto 24.6 % (20-40); Mean Corpuscular HGB Conc 29.6 g/dl (31.0-36.0); Mean Corpuscular Volume 101.1 fL (80.0-98.0); Mean Platelet Volume 10.1 fL (9.4-12.4); Monocytes Absolute Auto 0.8 X10*3/uL (0.1-1.2); Monocytes Percent Auto 9.4 % (2-11); Neutrophils Absolute Auto 5.5 x10*3/uL (2.0-8.3); Neutrophils Percent Auto 64.3 % (45-73); Platelet Count 184 X10*3/uL (160-400); Red Blood Count 4.54 X10*6/uL (4.60-5.80); Red Cell Distribution Width 14.4 % (11.0-16.0); White Blood Count 8.5 X10*3/uL (4.8-10.8)
[2025-02-17 07:21] LABS: Albumin Level 3.5 g/dL (3.5-5.0); Anion Gap 9 (12-20); Blood Urea Nitrogen 22 mg/dL (9-16); Carbon Dioxide 30 mmol/L (22-29); Chloride 108 mmol/L (96-108); Creatinine Clr Calc Pharmacy 136.7; Estimated Glomerular Filt Rate > 60; Glucose Random 103 mg/dL (60-115); Phosphorus 2.7 mg/dL (2.7-4.5); Potassium 4.1 mmol/L (3.3-5.1); Sodium 143 mmol/L (135-145)
[2025-02-17 07:40] VITALS: BP 119/60; PULSE 71; RESP 20; TEMP 36.5; O2SAT 96
[2025-02-17 08:47] LABS: Venous Blood Gas Refer to POC result
[2025-02-17 08:48] LABS: VBG Base Excess 2.1 mmol/L; VBG HCO3 29 mmol/L (22-26); VBG pCO2 58 mmHg; VBG pH 7.31 (7.32-7.43); VBG pO2 54 mmHg
--- NOTE | 2025-02-17 09:32 | P.DS_ITS ---
DS: Providers Provider Date of Service: 02/17/25 Date of admission: 02/15/25 15:10 Date of discharge: 02/17/25 Primary care physician: Unknown Physician DS: Diagnosis Discharge Diagnosis (1) PAM (obstructive sleep apnea): Status: Acute (2) Obesity hypoventilation syndrome: Status: Acute (3) Acute respiratory failure with hypoxia and hypercapnia: Status: Acute DS: Summary Hospital Course Hospital Course: from initial hpi: 59M PMH morbid obesity with OHS/PAM, cociaine and marijuana use, presented with sob. Patient reports symptoms began approximately 4 days ago associated with productive cough, inability to tolerate any exertion, subjective fever. Denies chest pain, nausea vomiting, abdominal pain. Reports noncompliance with CPAP. In ED noted to be hypoxic, hypercapnia, chest imaging unremarkable. hospital course: Patient was admitted for acute on chronic hypercapnic and acute hypoxic respiratory complicated by acute metabolic encephalopathy due to noncompliance with CPAP and acute on chronic diastolic CHF in a patient with obesity hypoventilation syndrome, obstructive sleep apnea and pulmonary hypertension initially admitted with IV Diamox, empiric ceftriaxone azithromycin for possible pneumonia which was ruled and reactive airway due to recent cocaine use with steroids and nebulizers. Due to worsening mental status and worsening hy percapnia patient was put on BiPAP and transferred to the intensive care unit, was further diuresed and weaned to room. He is feeling much better will be discharged home. He is encouraged to remain compliant with CPAP, avoid cocaine use, continued to pursue weight loss. Time Attestation Discharge Coordination Time (in mins): 35 Quality: Safe Use of Opioids Does Pt have an Active Cancer Diagnosis on the Problem List?: No Quality: Stroke Does the patient have a stroke diagnosis?: No Physical Exam Vital Signs: Vital Signs: Last Vital Signs Temp 97.7 F 02/17/25 07:40 Pulse 71 02/17/25 07:40 Resp 20 02/17/25 07:40 BP 119/60 02/17/25 07:40 Pulse Ox 96 02/17/25 07:40 O2 Del Method Room Air 02/17/25 07:40 O2 Flow Rate 1 02/16/25 11:00 FiO2 30 02/16/25 12:00 BMI result Body Mass Index 52.6 General: AO X 3, no acute distress Resp: CTA bilateral, no accessory muscles used CVS: S1,S2,RRR GI: soft, non tender, non distended Neuro: motor grossly intact, alert Psych: appropriate affect, appropriate insight DS: Data Data Completed and Pending Labs on day of discharge: Laboratory Results - last 24 hr 02/16/25 02/17/25 02/17/25 12:08 06:29 08:44 WBC 8.5 RBC 4.54 L Hgb 13.6 L Hct 45.9 MCV 101.1 H MCH 30.0 MCHC 29.6 L RDW 14.4 Plt Count 184 MPV 10.1 Immature Gran % (Auto) 0.4 Neut % (Auto) 64.3 Lymph % (Auto) 24.6 [place] % (Auto) 9.4 Eos % (Auto) 1.1 Baso % (Auto) 0.2 Lymph # (Auto) 2.1 [place] # (Auto) 0.8 Eos # (Auto) 0.1 Baso # (Auto) 0.0 Abs Immat Gran (auto) 0.03 Absolute Neuts (auto) 5.5 Absolute Nucleated RBC 0.000 Nucleated RBC % (auto) 0.0 O2 Saturation 92.0 ABG pH at Pt Temp 7.28 L ABG pCO2 at Pt Temp 62 H* ABG pO2 at Pt Temp 73 L ABG HCO3 29 H ABG Base Excess (Actual) 1.1 VBG pH 7.31 L VBG pCO2 58 VBG pO2 54 VBG HCO3 29 H VBG O2 Saturation 82.0 VBG Base Excess 2.1 Sodium 143 Potassium 4.1 Chloride 108 Carbon Dioxide 30 H Anion Gap 9 L BUN 22 H Creatinine 0.87 Estim Creat Clear Calc 136.7 Estimated GFR > 60 Random Glucose 103 Calcium 9.0 Phosphorus 2.7 Magnesium 2.0 Albumin 3.5 Preliminary micro results at discharge 02/15/25 12:18 Blood Culture - Preliminary Blood - Venous No growth after 24 hours. 02/15/25 12:18 Blood Culture - Preliminary Blood - Venous No growth after 24 hours. Discharge Plan Discharge Anticipated Discharge Date/Time: 02/17/25 09:30 Patient Disposition: Home, Self-Care Discharge Diagnosis: copd, ohs/pam Referrals: Physician,Unknown J [Primary Care Provider] - 1 Week Discharge Medications: Continued gabapentin 300 mg Capsule 300 mg PO BID@0900,1500 acetaminophen [Tylenol] 325 mg Tablet 650 mg PO Q6H PRN (Reason: Pain (Scale Score 1-3)) Discharge Orders: Discharge Order (Routine); Ordered 02/17/25 Ordered By: Noah Antonio Diet: Advance to usual diet Activity on Discharge: As tolerated Stand Alone Forms: Patient Portal Discharge page Print Language: Lithuanian Other Ambulatory Orders: [place] echo transthoracic complete (Routine) Timeframe: 1 Week Facility: [facility] - Location: Cardiology Ordered By: Noah Antonio Care Plan Goals: recovery Health Concerns: ohs/pam/obesity Plan of Treatment: must use cpap at night, follow up echo, weight loss Assessment: see above
[2025-02-17] MEDS: Enoxaparin Sodium 40 MG/0.4 ML SYRINGE SUBCUT (09:39)
[2025-02-17] MEDS: 0.9 % Sodium Chloride Flush 3 ML SYRINGE IVFLUSH (09:41)
--- NOTE | 2025-02-17 10:00 | MHC.CM.PN ---
Patient has been medically cleared for dc to home today, self care.
[2025-02-18 09:07] LABS: ABG Refer to POC result
== END 2025-02-17 10:30 | disposition home or self-care (01) | DRG 190 ==
LOC: HO.ED 15:08 → HO.EDOVER 15:15 → HO.S3 16:16 → HO.EDOVER 18:04 → HO.ICU 23:07 → HO.IMC 02-16 13:35
PROVIDERS: Internal Medicine Pulmonary Disease; Nurse Practitioner Family; Physician Assistant Medical; Admitting Provider Internal Medicine; Emergency Provider Emergency Medicine; Visit Provider Internal Medicine
DX: J44.1 Chronic obstructive pulmonary disease with (acute) exacerbation (principal); G93.41 Metabolic encephalopathy; J96.22 Acute and chronic respiratory failure with hypercapnia; J96.21 Acute and chronic respiratory failure with hypoxia; I50.33 Acute on chronic diastolic (congestive) heart failure; E66.2 Morbid (severe) obesity with alveolar hypoventilation; Z68.43 Body mass index [BMI] 50.0-59.9, adult; Z91.199 Patient's noncompliance with other medical treatment and regimen due to unspecified reason; F19.10 Other psychoactive substance abuse, uncomplicated; Z20.822 Contact with and (suspected) exposure to COVID-19; Z79.899 Other long term (current) drug therapy
CPT/HCPCS: 0241U; 36415; 36600; 71046; 71275; 80048; 80053; 82040; 82803; 83605; 83735; 83880; 84100; 84484; 85025; 87040; 93005; 94660; 99285; J1120; J1650; J1938; J2919; Q9967

== ENCOUNTER → 2025-02-15 11:40 | Outpatient (BNV) | payer MEDICARE, MEDICAID, SELFPAY | PROVIDERS: Admitting Provider Internal Medicine; Emergency Provider Emergency Medicine; Visit Provider Internal Medicine | DX: R06.02 Shortness of breath (principal) | CPT/HCPCS: 93010 ==

== ENCOUNTER → 2025-02-15 11:40 | Outpatient (BNV) | payer MEDICARE, MEDICAID, SELFPAY | PROVIDERS: Emergency Provider Emergency Medicine; Visit Provider Radiology Diagnostic Radiology | DX: I28.8 Other diseases of pulmonary vessels (principal); R06.02 Shortness of breath | CPT/HCPCS: 71046; 71275 ==

== ENCOUNTER → 2025-02-15 15:10 | Outpatient (BNV) | payer MEDICARE, MEDICAID, SELFPAY | PROVIDERS: Admitting Provider Internal Medicine; Emergency Provider Emergency Medicine; Visit Provider Internal Medicine | DX: G47.33 Obstructive sleep apnea (adult) (pediatric) (principal); E66.2 Morbid (severe) obesity with alveolar hypoventilation; J96.01 Acute respiratory failure with hypoxia; J96.02 Acute respiratory failure with hypercapnia | CPT/HCPCS: 99223; 99239 ==

== ENCOUNTER → 2025-02-15 15:10 | Outpatient (BNV) | payer MEDICARE, MEDICAID, SELFPAY | PROVIDERS: Admitting Provider Internal Medicine; Emergency Provider Emergency Medicine; Visit Provider Internal Medicine Pulmonary Disease | DX: J96.01 Acute respiratory failure with hypoxia (principal); J96.02 Acute respiratory failure with hypercapnia; E66.2 Morbid (severe) obesity with alveolar hypoventilation; G47.33 Obstructive sleep apnea (adult) (pediatric) | CPT/HCPCS: 99291 ==

== ENCOUNTER 2025-06-05 14:03 | Emergency (ER) | payer MEDICARE, MEDICAID, SELFPAY ==
--- NOTE | 2025-06-05 14:24 | ED.GENADULT ---
[facility] - General Adult General Chief complaint: Dizziness Stated complaint: dizziness Time Seen by Provider: 06/05/25 14:47 Source: patient Mode of arrival: ambulatory Limitations: no limitations History of Present Illness ED Provider: Dr. Muller [facility] narrative: This is a 60-year-old male history of obstructive sleep apnea, pulmonary arterial hypertension, COPD presenting to ER today for evaluation of dizziness. Patient stated this worsened when he moves. He is asymptomatic at this time lying in bed. Patient stated that since 2018 he has been having episode of dizziness. This was persisting therefore he presents to the ER for evaluation he is also complaining of some headaches. He stated that this is worse when he lays on his right side. Patient states he is normally on CPAP however he has not been using it due to discomfort of CPAP. Related Data Home Medications ?Medication ?Instructions ?Recorded ?Confirmed acetaminophen 325 mg tablet 650 mg PO Q6H PRN Pain (Scale 02/15/25 02/15/25 (Tylenol) Score 1-3) gabapentin 300 mg capsule 300 mg PO BID@0900,1500 02/15/25 02/15/25 Previous Rx's ?Medication ?Instructions ?Recorded meclizine 25 mg tablet 25 mg PO TID PRN motion sickness 06/05/25 #30 tabs Allergies Allergy/AdvReac Type Severity Reaction Status Date / Time No Known Allergies Allergy Verified 06/05/25 14:26 Review of Systems Review of Systems: Pertinent review of systems as mentioned in [facility]. All other system otherwise negative. [facility] Past Medical History [facility] Narrative: Medical history as mentioned in HPI Medical History Obesity hypoventilation syndrome PAM (obstructive sleep apnea) Morbid obesity Surgical History History of skin surgery History of hip surgery Family History Family History Father Prostate CA Mother Colon cancer Sister Uterine cancer Brother DM (diabetes mellitus) Sister No problems noted. Social History Social History Household Members: Other Household Members Other:: brother Housing: Apartment Do you presently have visiting nurse or other home services: No Alcohol intake: current Alcohol intake frequency: a few times a week Patient Tobacco Use Status: Never used Tobacco Smoked in Last 30 Days: No Second Hand Smoke Exposure: No Use of substances other than those prescribed or required for medical reasons: No Substance Use Type: Crack/Cocaine Advance Directives: No Advance Directives Information Provided: No Do you have a plan to hurt others: No Plan service: No Physical Exam ED Exam Exam: General: Pleasant, no distress, interacting appropriately Head: Normacephalic, atraumatic ENT: oral mucosa moist, neck supple, no tracheal deviation Cardiovascular: regular rate, regular rhythm, no murmurs, rubbing, gallops Respiratory: CTAB, no wheeze, rales, rhonchi Gastrointestinal: Soft, non distended, non tender, non guarding Extremities: Trace edema bilaterally Neurological: Awake and alert, no facial droop noted Skin: Warm and dry Psychiatric: Appropriate mood and thoughts Vital Signs: Vital Signs - 24 hr 06/05/25 14:25 06/05/25 16:02 06/05/25 16:11 Temperature 98.5 F 98.7 F Pulse Rate 61 66 57 Respiratory Rate 20 18 15 Blood Pressure 154/79 H 131/82 128/59 L Pulse Oximetry 94 93 93 Oxygen Delivery Method Room Air Room Air Room Air 06/05/25 18:04 Temperature 98.8 F Pulse Rate 56 Respiratory Rate 17 Blood Pressure 139/55 L Pulse Oximetry 95 Oxygen Delivery Method Room Air BMI result Body Mass Index 48.7 NIH Stroke Scale Time: 17:31 Level of Consciousness: Alert Level of Consciousness Questions: Answers both questions correctly Level of Consciousness Commands: Performs both tasks correctly Best Gaze: Normal Visual: No visual loss Facial Palsy: Normal Motor Arm (Right): No drift Motor Arm (Left): No drift Motor Leg (Right): No drift Motor Leg (Left): No drift Limb Ataxia: Absent Sensory: Normal Best Language: No aphasia Dysarthia: Normal Extinction and Inattention: No abnormality Score: 0 Course Course Course Narrative: This is a rapid medical exam performed by Lisa Eller NP: Additional HPI, ROS, PE not included below will be deferred to primary provider. Patient is a 60y/o M pmhx PAM, pulmonary HTN, COPD presenting with complaint of dizziness x 1 week. Began after being out in the sun last weekend, vomited that day. States is worse than normal dizziness. Intermittent episodes of dizziness, worse with position changes. No focal neuro deficits in triage. Plan: EKG, labs Medications Administered Discontinued Medications Generic Name Dose Route Start Last Admin Trade Name Burt PRN Reason Stop Dose Admin Acetaminophen 975 mg 06/05/25 17:13 06/05/25 17:21 Acetaminophen 325 Mg Tablet PO 06/05/25 17:14 975 mg ONCE ONE Administration Sodium Chloride 1,000 mls @ 999 mls/hr 06/05/25 17:15 06/05/25 17:21 Ns IV 06/05/25 18:15 999 mls/hr .Q1H1M HIGINIO Administration Meclizine HCl 25 mg 06/05/25 17:13 06/05/25 17:21 Meclizine Hcl 25 Mg Tablet PO 06/05/25 17:14 25 mg ONCE ONE Administration Medical Decision Making Medical Decision Making [facility] Narrative: 60-year-old male history of PAM, pulmonary arterial hypertension, COPD presented hospital today for evaluation of intermittent dizziness. Worsened with position. I suspect patient likely has BPPV. He has no dizziness at resting. Worsened when he moves. We will plan to give patient has IV fluid, meclizine dose will be provided the patient. EKG lab work will be obtained as well to assess for any metabolic cause of his dizziness. Patient NIH score is 0. I do not think this is a stroke in nature. No STEMI on EKG, patient is unremarkable, patient chemistries unremarkable. Negative troponin. Patient states he does feel better after IV fluid and meclizine. We will discharge patient with meclizine. I suspect this is BPPV. Patient was able to ambulate without any issues. Patient will be discharged home. Differential Diagnosis Differential Diagnoses: The differential diagnosis associated with the presentation includes Dizziness, BPPV, CVA, dehydration Lab Data [facility] Lab Attestation statement: I reviewed the patient's lab results. 06/05/25 14:50 06/05/25 14:50 Labs: Lab Results 06/05/25 Range/Units 14:50 WBC 9.4 (4.8-10.8) X10*3/uL RBC 4.67 (4.60-5.80) X10*6/uL Hgb 14.5 (14.0-18.0) g/dl Hct 44.8 (42.0-52.0) % MCV 95.9 (80.0-98.0) fL MCH 31.0 (27.0-33.0) pg MCHC 32.4 (31.0-36.0) g/dl RDW 14.0 (11.0-16.0) % Plt Count 168 (160-400) X10*3/uL MPV 9.9 (9.4-12.4) fL Immature Gran % (Auto) 0.3 (0.0-0.4) % Neut % (Auto) 71.0 (45-73) % Lymph % (Auto) 18.0 L (20-40) % [place] % (Auto) 7.5 (2-11) % Eos % (Auto) 2.9 (0-4) % Baso % (Auto) 0.3 (0-2) % Lymph # (Auto) 1.7 (1.2-4.9) X10*3/uL [place] # (Auto) 0.7 (0.1-1.2) X10*3/uL Eos # (Auto) 0.3 (0.0-0.4) X10*3/uL Baso # (Auto) 0.0 (0.0-0.2) X10*3/uL Abs Immat Gran (auto) 0.03 (0.00-0.03) X10*3/uL Absolute Neuts (auto) 6.7 (2.0-8.3) x10*3/uL Absolute Nucleated RBC 0.000 (0.0-0.012) X10*3/uL Nucleated RBC % (auto) 0.0 (0.0-0.2) /100WBC PT 14.8 H (10.9-12.4) SEC INR 1.3 H (0.9-1.1) Sodium 138 (135-145) mmol/L Potassium 4.3 (3.3-5.1) mmol/L Chloride 102 (96-108) mmol/L Carbon Dioxide 31 H (22-29) mmol/L Anion Gap 9 L (12-20) BUN 13 (9-16) mg/dL Creatinine 0.66 (0.5-1.4) mg/dL Estim Creat Clear Calc 185.6 Estimated GFR > 60 Random Glucose 96 (60-115) mg/dL Calcium 9.2 (8.4-10.2) mg/dL Magnesium 1.9 (1.6-2.6) mg/dL Total Bilirubin 0.4 (0.0-1.0) mg/dL AST 25 (5-37) U/L ALT 26 (0-40) U/L Alkaline Phosphatase 81 (39-117) U/L Troponin I High Sens < 2.7 D (<3.5-35.0) ng/L Total Protein 7.1 (6.5-8.0) g/dL Albumin 3.8 (3.5-5.0) g/dL Independent Interpretation I performed an independent interpretation of an: EKG Discharge Plan Discharge Clinical Impression: Benign paroxysmal positional vertigo Qualifiers: Laterality: unspecified laterality Qualified Code(s): H81.10 - Benign paroxysmal vertigo, unspecified ear Patient Disposition: Home, Self-Care Instructions: Benign Paroxysmal Positional Vertigo (ED) Prescriptions: New meclizine 25 mg tablet 25 mg PO TID PRN (Reason: motion sickness) Qty: 30 0RF No Action gabapentin 300 mg Capsule 300 mg PO BID@0900,1500 acetaminophen [Tylenol] 325 mg Tablet 650 mg PO Q6H PRN (Reason: Pain (Scale Score 1-3)) Print Language: Zambian
[2025-06-05 14:25] VITALS: BP 154/79; PULSE 61; RESP 20; O2SAT 94; BMI 48.7
--- NOTE | 2025-06-05 14:27 | ECG_ITS ---
Test Reason : DIZZINESS Blood Pressure : */* mmHG Vent. Rate : 65 BPM Atrial Rate : 65 BPM P-R Int : 160 ms QRS Dur : 84 ms QT Int : 400 ms P-R-T Axes : 65 -24 45 degrees QTcB Int : 416 ms Sinus rhythm with Premature atrial complexes Otherwise normal ECG When compared with ECG of 15-Feb-2025 12:43, Premature atrial complexes are now Present Referred By: Jenn Eller Electronically Signed By: Jose A Le
[2025-06-05 14:55] LABS: MANUAL DIFF FLAG NO
[2025-06-05 14:59] LABS: Hematocrit 44.8 % (42.0-52.0); Hemoglobin 14.5 g/dl (14.0-18.0); Imm Gran Abs Auto 0.03 X10*3/uL (0.00-0.03); Imm Gran Pct Auto 0.3 % (0.0-0.4); Lymphocytes Absolute Auto 1.7 X10*3/uL (1.2-4.9); Mean Corpuscular HGB Conc 32.4 g/dl (31.0-36.0); Mean Corpuscular Hemoglobin 31.0 pg (27.0-33.0); Mean Corpuscular Volume 95.9 fL (80.0-98.0); NRBC Abs Auto 0.000 X10*3/uL (0.0-0.012); NRBC Pct Auto 0.0 /100WBC (0.0-0.2); Platelet Count 168 X10*3/uL (160-400); Red Blood Count 4.67 X10*6/uL (4.60-5.80); White Blood Count 9.4 X10*3/uL (4.8-10.8)
[2025-06-05 15:03] LABS: INTERNATIONAL NORM RATIO 1.3 (0.9-1.1); Prothrombin Time 14.8 SEC (10.9-12.4)
[2025-06-05 15:12] LABS: Alanine Aminotransferase 26 U/L (0-40); Albumin Level 3.8 g/dL (3.5-5.0); Alkaline Phosphatase 81 U/L (39-117); Anion Gap 9 (12-20); Aspartate Amino Transferase 25 U/L (5-37); Blood Urea Nitrogen 13 mg/dL (9-16); Calcium 9.2 mg/dL (8.4-10.2); Carbon Dioxide 31 mmol/L (22-29); Chloride 102 mmol/L (96-108); Creatinine Clr Calc Pharmacy 185.6; Estimated Glomerular Filt Rate > 60; Magnesium 1.9 mg/dL (1.6-2.6); Potassium 4.3 mmol/L (3.3-5.1); Sodium 138 mmol/L (135-145); Total Protein 7.1 g/dL (6.5-8.0)
[2025-06-05 15:18] LABS: Troponin-I High Sensitivity < 2.7 ng/L (<3.5-35.0)
[2025-06-05 16:02] VITALS: BP 131/82; PULSE 66; RESP 18; TEMP 36.9; O2SAT 93
[2025-06-05 16:11] VITALS: BP 128/59; PULSE 57; RESP 15; TEMP 37.1; O2SAT 93
--- NOTE | 2025-06-05 17:01 | PC.NURSE ---
Patient presents to ED c/o of diziness Denies pain Slight SOB, O2 94% RA Patient states the dizziness is position, when he lays on a certain side the room starts to spin On cardic monitor sinus jose Provider in to see patient plan of care on going
--- OUTSIDE RECORDS SUMMARY | 2025-06-05 17:54 | XMS_ITS | Clinical Summary ---
Author Organization [address] [facility] Address [address] [place] [address] Phone Care Team Providers Care Open Developer Operator Name Role Phone Unavailable Primary Care Provider Unavailabl e Social History Tobacco Use Types Packs/Day Years Used Date Smoking Tobacco: Never Assessed Sex and Gender Information Value Date Recorded Sex Assigned at Not on file Legal Sex Male 2:10 PM EST Gender Identity Not on file Sexual Orientation Not on file Plan of Treatment Upcoming Encounters Date Type Department Care Team ([facility] Contact Info) Description 10/31/2025 2:00 PM EST Office Visit Bariatric Surgery - [place] [address] [facility] [address] [place] [address] Rocio Alvares MD [address] [place] [phone] Health Maintenance Due Date Last Done Comments DTaP,Tdap,and Td Vaccines (1 - Tdap) 1983 Pneumococcal Vaccine: 50+ Ye ars (1 of 1 - PCV) 2014 Zoster Vaccines (1 of 2) 2014 Depression Screening 09/12/2024 Cholesterol Screening (Lipid Panel) 03/15/2025 Colorectal Cancer Screening: Colonoscopy 03/15/2025 HIV Screening 03/15/2025 Hepatitis C Screening 03/15/2025 Medicare Annual Wellness Visit 03/15/2025 Social Influencers of Health Screening 03/15/2025 COVID-19 Vaccine ( - 2023-2 5 season) 2025 Influenza Vaccine (#1) 2025 RSV Immunization Adult Patie nts (1 - 1-dose 75+ series) 2039 HIB Vaccines Aged Out No longer eligi ble based on patient's age to complete this topic HPV Vaccines Aged Out No longer eligi ble based on patient's age to complete this topic Hepatitis A Vaccines Aged Out No long er eligible based on patient's age to complete this topic Hepatitis B Vaccines Aged Out No long er eligible based on patient's age to complete this topic IPV Vaccines Aged Out No longer eligi ble based on patient's age to complete this topic MMR Vaccines Aged Out No longer eligi ble based on patient's age to complete this topic Meningococcal ACWY Vaccine Aged Out N o longer eligible based on patient's age to complete this topic Meningococcal B Vaccine Aged Out No l onger eligible based on patient's age to complete this topic RSV Immunization Patients Un ivory 20 months Aged Out No longer eligible b ased on patient's age to complete this topic Varicella Vaccines Aged Out No longer eligible based on patient's age to complete this topic Insurance [place]IC[place]
[2025-06-05 18:04] VITALS: BP 139/55; PULSE 56; RESP 17; TEMP 37.1; O2SAT 95
--- NOTE | 2025-06-05 19:11 | PC.NURSE ---
Addendum entered by Laura Montoya RN 06/05/25 19:14: IV fluids continue to run, about 400mL left Original Note: assumed care of pt, pt states feeling better. respirations even and unlabored.
--- NOTE | 2025-06-05 19:38 | PC.NURSE ---
pt taken for ambulation trial, pt ambulated with steady baseline gate with walker, pt states at baseline he walks slow.
[2025-06-05 19:46] VITALS: BP 134/78; PULSE 56; RESP 18; TEMP 37.2; O2SAT 95
== END 2025-06-05 19:52 | disposition home or self-care (01) ==
PROVIDERS: Registered Nurse Emergency; Emergency Provider Student in an Organized Health Care Education/Training Program; PCP Internal Medicine
DX: H81.10 Benign paroxysmal vertigo, unspecified ear (principal); R94.31 Abnormal electrocardiogram [ECG] [EKG]; R11.0 Nausea; R10.2 Pelvic and perineal pain; Z15.1 Genetic susceptibility to epilepsy and neurodevelopmental disorders; Z79.899 Other long term (current) drug therapy
CPT/HCPCS: 36415; 80053; 83735; 84484; 85025; 85610; 93005; 96360; 96361; 99284; 99285

== ENCOUNTER → 2025-06-05 14:27 | Outpatient (BNV) | payer MEDICARE, MEDICAID, SELFPAY | PROVIDERS: Emergency Provider Student in an Organized Health Care Education/Training Program; PCP Internal Medicine; Visit Provider Internal Medicine Cardiovascular Disease | DX: I49.1 Atrial premature depolarization (principal) | CPT/HCPCS: 93010 ==